=== PATIENT | male | born 1995 | race African-American/Black ===

== ENCOUNTER 2016-04-03 21:19 | Emergency (ER) | payer SELFPAY ==
--- NOTE | 2016-04-03 21:42 | ER Document Report ---
ED Medical Screen (RME) - General Stated Complaint: COUGH Time seen by provider: 21:42 Mode of Arrival: Ambulatory Notes: 21-year-old smoker non asthmatic male with a dry cough for 4-5 days. Nasal congestion. No fever. TRAVEL OUTSIDE OF THE [place] IN LAST 30 DAYS: No - Related Data Allergies/Adverse Reactions: No Known Allergies Allergy (Verified 07/11/15 02:31) Past Medical History Musculoskeltal Medical History: Reports Hx Musculoskeletal Trauma Skin Medical History: Reports Hx Cellulitis - Immunizations Hx Diphtheria, Pertussis, Tetanus Vaccination: Yes
--- NOTE | 2016-04-03 22:49 | ER Document Report ---
ED Respiratory Problem - General Chief Complaint: Cough Stated Complaint: COUGH Time seen by provider: 22:50 Mode of Arrival: Ambulatory Information source: Patient Notes: 21-year-old male presents to ED for cough with postnasal drainage and nasal congestion with no fever for the last 4-5 days. TRAVEL OUTSIDE OF THE [place] IN LAST 30 DAYS: No - HPI Patient complains to provider of: Cough Onset: Other - 4-5 days Duration: Continuous Initiating Event: URI Quality of pain: Other - Pain chest and back and sore throat with cough Severity: Severe Pain Level: 5 Context: Smoker Cough: Nonproductive Sputum amount: None Associated symptoms: Congestion, Cough, PND, Runny nose, Sinus pain/pressure, Sore Throat. denies: Fever Worsened by: cough Similar symptoms previously: Yes Recently seen / treated by doctor: No - Related Data Allergies/Adverse Reactions: No Known Allergies Allergy (Verified 07/11/15 02:31) Past Medical History - General Information source: Patient - Social History Smoking Status: Current Some Day Smoker Chew tobacco use (# tins/day): No Frequency of alcohol use: Rare Drug Abuse: None Occupation: unemployed Lives with: Family - Lives with his aunt Family History: Other - Patient was adopted does not know his family history Patient has suicidal ideation: No Patient has homicidal ideation: No - Past Medical History Cardiac Medical History: Reports: None Pulmonary Medical History: Reports: None EENT Medical History: Reports: None Neurological Medical History: Reports: None Endocrine Medical History: Reports: None Renal/ Medical History: Reports: Hx Epididymitis Malignancy Medical History: Reports None GI Medical History: Reports: None Musculoskeltal Medical History: Reports Hx Musculoskeletal Trauma - Fractured fingers states he had a concussion when he was earlier Skin Medical History: Reports Hx Cellulitis Psychiatric Medical History: Reports: None Traumatic Medical History: Reports: Hx Fractures - Fingers, Other - Concussion as a teenager Infectious Medical History: Reports: None Surgical Hx: Negative Past Surgical History: Reports: None - Immunizations Immunizations up to date: Yes Hx Diphtheria, Pertussis, Tetanus Vaccination: Yes Review of Systems - Review of Systems Constitutional: Recent illness. denies: Fever EENT: Nose discharge, Sinus discharge, Throat pain Cardiovascular: No symptoms reported Respiratory: Cough, Other - Pain with cough to chest, back, and throat Gastrointestinal: No symptoms reported Genitourinary: No symptoms reported Male Genitourinary: No symptoms reported Musculoskeletal: No symptoms reported Skin: No symptoms reported Hematologic/Lymphatic: No symptoms reported Neurological/Psychological: No symptoms reported -: Yes All other systems reviewed and negative Physical Exam - Vital signs Vitals: Temp Pulse Resp BP Pulse Ox 99.4 F 81 18 104/62 98 04/03/16 21:43 04/03/16 21:43 04/03/16 21:43 04/03/16 21:43 04/03/16 21:43 Interpretation: Normal - General General appearance: Appears well, Alert - HEENT Head: Normocephalic, Atraumatic Eyes: Normal Pupils: PERRL Ears: Normal External canal: Normal Tympanic membrane: Normal Sinus: Normal Nasal: Purulent discharge, Swelling Mouth/Lips: Normal Pharynx: Post nasal drainage. No: Erythema, Exudate, Peritonsillar abscess, Retropharyngeal abscess, Tonsillar hypertrophy, Uvular edema, Potential airway comprom. Neck: Normal - Respiratory Respiratory status: No respiratory distress Chest status: Pain with cough Breath sounds: Nonproductive cough Chest palpation: Normal - Cardiovascular Rhythm: Regular Heart sounds: Normal auscultation Murmur: No - Abdominal Inspection: Normal Distension: No distension Bowel sounds: Normal Tenderness: Nontender Organomegaly: No organomegaly - Back Back: Normal, Nontender - Extremities General upper extremity: Normal inspection, Nontender, Normal color, Normal ROM , Normal temperature General lower extremity: Normal inspection, Nontender, Normal color, Normal ROM , Normal temperature, Normal weight bearing. No: Victoriano's sign - Neurological Neuro grossly intact: Yes Cognition: Normal Orientation: AAOx4 Radha Coma Scale Eye Opening: Spontaneous Radha Coma Scale Verbal: Oriented Radha Coma Scale Motor: Obeys Commands Radha Coma Scale Total: 15 Speech: Normal Motor strength normal: LUE, RUE, LLE, RLE Sensory: Normal - Psychological Associated symptoms: Normal affect, Normal mood - Skin Skin Temperature: Warm Skin Moisture: Dry Skin Color: Normal Course - Re-evaluation Re-evalutation: 04/03/16 22:57 Patient treated with Claritin, Sudafed, and Mucinex, and ibuprofen while in the emergency room. Patient was discharged home with instructions to follow-up with primary doctor. - Vital Signs Vital signs: Temp Pulse Resp BP Pulse Ox 98.0 F 66 16 112/65 100 04/03/16 23:09 04/03/16 23:09 04/03/16 23:09 04/03/16 23:09 04/03/16 23:09 Discharge - Discharge Clinical Impression: URI (upper respiratory infection) Qualifiers: URI type: unspecified URI Qualified Code(s): J06.9 - Acute upper respiratory infection, unspecified Condition: Stable Disposition: HOME, SELF-CARE Instructions: Family Physicians / Practices Additional Instructions: UPPER RESPIRATORY ILLNESS: You have a viral infection of the respiratory passages -- a "cold." This common infection causes nasal congestion, drainage, and often sore throat and cough. It is highly contagious. The disease usually lasts about 10 to 14 days. There is no "cure" for the viral infection -- it must run its course. If there is a complication, such as bacterial infection in the nose, sinuses, middle ear, or bronchial tubes, antibiotics may be required. The antibiotics won't affect the virus. Drink plenty of fluids. A humidifier may help. An expectorant medication or decongestant may make you more comfortable. Use acetaminophen or ibuprofen for fever or aches. See the doctor if fever persists over two days, if there is any significant worsening of your symptoms, or if you simply fail to improve as expected. DECONGESTANT MEDICATION: A decongestant medicine has been suggested. Often this medicine is combined in the same tablet with an antihistamine or expectorant. This type of medicine is helpful in treating a bad cold or sinus condition, as well as in treatment of the nasal congestion of hay fever. It is not of much benefit for lung infections. Decongestant medicines are related to stimulants. They can cause an increase in blood pressure and heart rate. Persons with heart disease and high blood pressure should not take decongestants without discussing this with the physician. If you develop palpitations, chest pain, headache, or tremors, stop the medicine and consult your physician. COUGH-SUPPRESSANT & EXPECTORANT MEDICATION: You are to use a cough medication as needed for relief of symptoms. This medicine is a combination of an expectorant (to make the mucous thinner and more easily "coughed up") and a cough suppressant (to reduce the frequency of coughing). The cough-suppressant medicine is related to narcotics. You may experience mild nausea and sleepiness. Some patients who are very sensitive to narcotics may have stomach pain from this medicine. Taking the medicine with food reduces these side effects. Do not drive or work with machinery until you know how this medicine affects you. The expectorant should have no side effects. Iodine-containing expectorants (such as organidin) should not be taken by persons with active thyroid disease unless approved by your doctor. Call the doctor if you develop shortness of breath, hives, rash, itching, lightheadedness, or severe nausea and vomiting. USE OF ACETAMINOPHEN (Tylenol): Acetaminophen may be taken for pain relief or fever control. It's much safer than aspirin, offering a wider range of "safe" dosages. It is safe during . Some brand names are Tylenol, Panadol, Datril, Anacin 3, Tempra, and Liquiprin. Acetaminophen can be repeated every four hours. The following are maximum recommended dosages: >89 pounds or adults 650 mg to 900 mg Acetaminophen can be repeated every four hours. Maximum dose not to exceed 4000 mg a day. SMOKING: If you smoke, you should stop smoking. The tar and chemicals in cigarette smoke are harmful. Smoking has been shown to cause: emphysema chronic bronchitis lung cancer mouth and throat cancer stomach and pancreas cancer premature aging defects In addition, smoking increases ear and lung infections in children of smokers. FOLLOW-UP CARE: If you have been referred to a physician for follow-up care, call the physician s office for an appointment as you were instructed or within the next two days. If you experience worsening or a significant change in your symptoms, notify the physician immediately or return to the Emergency Department at any time for re-evaluation. Forms: Smoking Cessation Education
[2016-04-03] MEDS ORDERED: LORATADINE 10 MG TABLET PO ONE (22:50)
[2016-04-03] MEDS ORDERED: GUAIFENESIN 600 MG TABLET.SA PO ONE (22:50)
[2016-04-03] MEDS ORDERED: PSEUDOEPHEDRINE HCL 30 MG TABLET PO ONE (22:50)
[2016-04-03] MEDS ORDERED: IBUPROFEN 800 MG TABLET PO ONE (22:50)
[2016-04-03 23:27] VITALS: BP 112/65
== END 2016-04-03 23:09 | disposition home or self-care (01) ==
LOC: ER 21:19
DX: J06.9 Acute upper respiratory infection, unspecified (principal); R05 Cough; R09.81 Nasal congestion; M54.9 Dorsalgia, unspecified; F17.200 Nicotine dependence, unspecified, uncomplicated
CPT/HCPCS: 99283

== ENCOUNTER 2017-02-13 13:27 | Emergency (ER) | payer SELFPAY ==
--- NOTE | 2017-02-13 13:55 | ER Document Report ---
HPI - HPI Patient complains to provider of: Possible exposure to gonorrhea Onset: Other - 2 days ago Quality of pain: No pain Pain Level: 0 Context: 22-year-old male had intercourse without condom with female partner who states she might have gonorrhea. He has no dysuria. No penile pain or swelling. No testicular swelling or pain. No abdominal pain. History of chlamydia one time in the past. Needs to get to work at [employer] at 4 PM. Associated Symptoms: None Exacerbated by: Denies Relieved by: Denies Similar symptoms previously: No Recently seen / treated by doctor: No - ROS ROS below otherwise negative: Yes Systems Reviewed and Negative: Yes All other systems reviewed and negative Past Medical History - General Information source: Patient - Social History Smoking Status: Never Smoker Frequency of alcohol use: None Drug Abuse: None Lives with: Family Family History: Other - Patient was adopted does not know his family history Renal/ Medical History: Reports: Hx Epididymitis Musculoskeltal Medical History: Reports Hx Musculoskeletal Trauma - Fractured fingers states he had a concussion when he was earlier Skin Medical History: Reports Hx Cellulitis Traumatic Medical History: Reports: Hx Fractures - Fingers Past Surgical History: Reports: Other - Circumcised - Immunizations Immunizations up to date: Yes Hx Diphtheria, Pertussis, Tetanus Vaccination: Yes Vertical Provider Document - CONSTITUTIONAL Agree With Documented VS: Yes Exam Limitations: No Limitations - INFECTION CONTROL TRAVEL OUTSIDE OF THE [place] IN LAST 30 DAYS: No - HEENT HEENT: Normocephalic - NECK Neck: Supple - RESPIRATORY O2 Sat by Pulse Oximetry: 98 - GI/ABDOMEN Gastrointestinal: Abdomen Soft, Abdomen Non-Tender - MUSCULOSKELETAL/EXTREMETIES Musculoskeletal/Extremeties: CHERELLE JOHNSON - NEURO Level of Consciousness: Awake, Alert, Appropriate - DERM Integumentary: Warm, Dry, No Rash Course - Vital Signs Vital signs: Temp Pulse Resp BP Pulse Ox 97.8 F 78 14 120/69 98 02/13/17 13:41 02/13/17 13:41 02/13/17 13:41 02/13/17 13:41 02/13/17 13:41 Discharge - Discharge Clinical Impression: Possible gonorrhea exposure Condition: Good Disposition: HOME, SELF-CARE Instructions: Azithromycin ([facility]), Chlamydia ([facility]), Gonorrhea ([facility]), Rocephin ( [facility]) Additional Instructions: use condoms call me back in 3 hours [phone] for the std culture result Please complete the patient satisfaction survey if you get one, and return it.. If you do not receive a survey, then you can go to the [facility] website, [email or web address] and place your comments about your very good care. Thank you very much. It was a pleasure being your medical provider today. Forms: Return to Work
[2017-02-13] MEDS ORDERED: ONDANSETRON 4 MG TAB.RAPDIS PO ONE (14:09)
[2017-02-13] MEDS ORDERED: AZITHROMYCIN 250 MG TABLET PO ONE (14:09)
[2017-02-13] MEDS ORDERED: LIDOCAINE 1% INJ-PF (10 MG/ML) 30 ML SDV INFIL ONE (14:09)
[2017-02-13] MEDS ORDERED: CEFTRIAXONE INJ 250 MG VIAL IM ONE (14:09)
[2017-02-13 15:03] VITALS: BP 133/89
[2017-02-13 16:07] LABS: CHLAM PCR NOT DETECTED (NOT DETECT)
== END 2017-02-13 15:03 | disposition home or self-care (01) ==
LOC: ER 13:27
DX: Z20.2 Contact with and (suspected) exposure to infections with a predominantly sexual mode of transmission (principal)
CPT/HCPCS: 99283; 96372; 87491; 87591; S0119; J3490; J0696

== ENCOUNTER 2017-08-14 17:50 | Emergency (ER) | payer SELFPAY ==
[2017-08-14 18:02] VITALS: BP 128/57
--- NOTE | 2017-08-14 18:34 | ER Document Report ---
ED General - General Chief Complaint: Abdominal Pain Stated Complaint: DIARRHEA,ABDOMINAL PAIN Time Seen by Provider: 08/14/17 18:23 Notes: 22-year-old male here with complaints of diarrhea described as softer than usual stools as well as some abdominal "bubbling" but no abdominal pain or cramping. The symptoms have been ongoing for the past 4 days. He has not tried anything for the symptoms. He does not know if he may have consumed any foods that may have contributed to his symptoms. He has not had any nausea vomiting body aches fevers chills dysuria hematuria back pain flank pain abdominal pain. No known sick contacts. Denies that she is up-to-date. TRAVEL OUTSIDE OF THE [place] IN LAST 30 DAYS: No - Related Data Allergies/Adverse Reactions: No Known Allergies Allergy (Verified 02/13/17 13:41) Past Medical History - Social History Smoking Status: Unknown if Ever Smoked Family History: Other - Patient was adopted does not know his family history Patient has suicidal ideation: No Patient has homicidal ideation: No Renal/ Medical History: Reports: Hx Epididymitis. Denies: Hx Peritoneal Dialysis Musculoskeltal Medical History: Reports Hx Musculoskeletal Trauma - Fractured fingers states he had a concussion when he was earlier Skin Medical History: Reports Hx Cellulitis Traumatic Medical History: Reports: Hx Fractures - Fingers Past Surgical History: Reports: Other - Circumcised - Immunizations Immunizations up to date: Yes Hx Diphtheria, Pertussis, Tetanus Vaccination: Yes Review of Systems - Review of Systems Notes: See history of present illness for pertinent positive review of systems; otherwise all review of systems have been reviewed and are negative Physical Exam - Vital signs Vitals: Temp Pulse Resp BP Pulse Ox 98.1 F 62 18 128/57 H 97 08/14/17 18:01 08/14/17 18:01 08/14/17 18:01 08/14/17 18:01 08/14/17 18:01 - Notes Notes: PHYSICAL EXAMINATION: GENERAL: Well-appearing and in no acute distress. HEAD: Atraumatic, normocephalic. EYES: Pupils equal round and reactive to light, extraocular movements intact, sclera anicteric, conjunctiva are normal. ENT: nares patent, oropharynx clear without exudates. Moist mucous membranes. NECK: Normal range of motion, supple without lymphadenopathy LUNGS: CTAB and equal. No wheezes rales or rhonchi. HEART: Regular rate and rhythm without murmurs ABDOMEN: Soft, no tenderness. No facial grimacing/wincing upon palpation. No guarding, no rebound. EXTREMITIES: Normal range of motion, no pitting edema. No cyanosis. NEUROLOGICAL: Cranial nerves grossly intact. Normal sensory/motor exams. PSYCH: Normal mood, normal affect. SKIN: Warm, Dry, normal turgor, no rashes or lesions noted Course - Re-evaluation Re-evalutation: 08/14/17 18:32 MEDICAL DECISION MAKING: Concern for gastrointestinal infection, most likely viral We will prescribe him Zofran in case he develops nausea/vomiting in near future Discussed with him use of antidiarrheal [id number] medication if he feels the softer than usual stools are overwhelming Instructed patient on fever control with Tylenol and/or (if applicable) Motrin Also discussed keeping hydrated with water or Gatorade/Pedialyte Instructed follow-up PCP next day or few Patient understands and agrees to the plan of care - Vital Signs Vital signs: Temp Pulse Resp BP Pulse Ox 98.1 F 62 18 128/57 H 97 08/14/17 18:01 08/14/17 18:01 08/14/17 18:01 08/14/17 18:01 08/14/17 18:01 Discharge - Discharge Clinical Impression: Diarrhea Qualifiers: Diarrhea type: unspecified type Qualified Code(s): R19.7 - Diarrhea, unspecified Condition: Good Disposition: HOME, SELF-CARE Additional Instructions: You were seen in the emergency department at [facility]. Use the Zofran as needed if you develop nausea/vomiting. You may use Imodium AD for your softer than usual stools. Stay hydrated. Please followup with your primary physician in the next few days for further management/evaluation. Please return to the emergency department for worsening of symptoms or any symptom that you deem to be concerning or life-threatening. Thank you for allowing us to be part of your care. This documentation serves as your school/ work note for your evaluation here in the emergency department today. Prescriptions: Ondansetron [Zofran Odt 4 mg Tablet] 1 tab PO Q4H PRN #15 tab.rapdis PRN Reason: For Nausea/Vomiting
== END 2017-08-14 18:35 | disposition home or self-care (01) ==
LOC: ER 17:50
DX: R10.9 Unspecified abdominal pain (principal); R19.7 Diarrhea, unspecified
CPT/HCPCS: 99283

== ENCOUNTER 2017-08-15 16:25 | Emergency (ER) | payer SELFPAY ==
[2017-08-15 16:40] VITALS: BP 121/53
[2017-08-15] MEDS ORDERED: ONDANSETRON 4 MG TAB.RAPDIS PO ONE (16:45)
--- NOTE | 2017-08-15 16:47 | ER Document Report ---
ED General - General Chief Complaint: Abdominal Pain Stated Complaint: STOMACH PAIN, VOMITING Time Seen by Provider: 08/15/17 16:44 Notes: 22-year-old male seen here yesterday for softer than usual stools (without abdominal pain) back here today because he is now having vomiting and nausea. He has had 2 episodes today. The patient was prescribed Zofran yesterday however he did not go get it filled. He states that he went to go pick up worker a family member after his ED visit yesterday and this is the reason he did not get it filled. He cannot tell me why he did not go today to get it filled. TRAVEL OUTSIDE OF THE [place] IN LAST 30 DAYS: No - Related Data Allergies/Adverse Reactions: No Known Allergies Allergy (Verified 08/15/17 16:28) Past Medical History - Social History Smoking Status: Unknown if Ever Smoked Family History: Other - Patient was adopted does not know his family history Renal/ Medical History: Reports: Hx Epididymitis. Denies: Hx Peritoneal Dialysis Musculoskeltal Medical History: Reports Hx Musculoskeletal Trauma - Fractured fingers states he had a concussion when he was earlier Skin Medical History: Reports Hx Cellulitis Traumatic Medical History: Reports: Hx Fractures - Fingers Past Surgical History: Reports: Other - Circumcised - Immunizations Immunizations up to date: Yes Hx Diphtheria, Pertussis, Tetanus Vaccination: Yes Review of Systems - Review of Systems Notes: See history of present illness for pertinent positive review of systems; otherwise all review of systems have been reviewed and are negative Physical Exam - Vital signs Vitals: Temp Pulse Resp BP Pulse Ox 98.5 F 76 16 121/53 L 97 08/15/17 16:39 08/15/17 16:39 08/15/17 16:39 08/15/17 16:39 08/15/17 16:39 - Notes Notes: PHYSICAL EXAMINATION: GENERAL: Well-appearing and in no acute distress. HEAD: Atraumatic, normocephalic. EYES: Pupils equal round and reactive to light, extraocular movements intact, sclera anicteric, conjunctiva are normal. ENT: nares patent, oropharynx clear without exudates. Moist mucous membranes. NECK: Normal range of motion, supple without lymphadenopathy LUNGS: CTAB and equal. No wheezes rales or rhonchi. HEART: Regular rate and rhythm without murmurs ABDOMEN: Soft, no tenderness. No facial grimacing/wincing upon palpation. No guarding, no rebound. EXTREMITIES: Normal range of motion, no pitting edema. No cyanosis. NEUROLOGICAL: Cranial nerves grossly intact. Normal sensory/motor exams. PSYCH: Normal mood, normal affect. SKIN: Warm, Dry, normal turgor, no rashes or lesions noted Course - Re-evaluation Re-evalutation: 08/15/17 16:50 MEDICAL DECISION MAKING: MEDICAL DECISION MAKING: Concern for gastrointestinal infection, most likely viral The patient is noncompliant with discharge instructions from yesterday's visit He was specifically given Zofran in case he developed vomiting, which is what has happened Discussed with patient importance of compliance with discharge instructions Instructed patient on fever control with Tylenol and/or (if applicable) Motrin Also discussed keeping hydrated with water or Gatorade/Pedialyte Instructed follow-up PCP next day or few Patient understands and agrees to the plan of care - Vital Signs Vital signs: Temp Pulse Resp BP Pulse Ox 98.5 F 76 16 121/53 L 97 08/15/17 16:39 08/15/17 16:39 08/15/17 16:39 08/15/17 16:39 08/15/17 16:39 Discharge - Discharge Clinical Impression: Non compliance w medication regimen Vomiting Qualifiers: Vomiting type: unspecified Vomiting Intractability: non-intractable Nausea presence: with nausea Qualified Code(s): R11.2 - Nausea with vomiting, unspecified Condition: Good Disposition: HOME, SELF-CARE Additional Instructions: You were seen in the emergency department at [facility]. Use the Zofran you are prescribed yesterday for vomiting. Please followup with your primary physician in the next few days for further management/evaluation. Please return to the emergency department for worsening of symptoms or any symptom that you deem to be concerning or life-threatening. Thank you for allowing us to be part of your care. He was seen here today between 4:30PM and 5 PM
== END 2017-08-15 16:57 | disposition home or self-care (01) ==
LOC: ER 16:25
DX: R11.2 Nausea with vomiting, unspecified (principal); Z91.14 Patient's other noncompliance with medication regimen; R10.9 Unspecified abdominal pain
CPT/HCPCS: 99283; S0119